=== PATIENT | female | born 1950 | race Caucasian/White ===

== ENCOUNTER 2018-01-16 08:57 | Day surgery (SDC) | payer MEDICARE, BC ==
[~2018-01-16] VITALS: Ht 149.9 cm; Wt 48.1 kg
[~2018-01-16 08:57] MED LIST: ASPIRIN ADULT L81 M2 PO; CALCIUM 1200 PO; CYANOCOBAL1000 MCG/M IM; DICLOFENAC SODIUM1 % TOP; HYDROXYCHLOR200 MG PO; MONTELUKAST SOD10 MG PO; POT CHLORIDE10 ME5 PO; TRAMADOL HYDROC50 MG PO; ZOMETA4 MG/5 ML IV; [UNRECOGNIZED DRUG - OTHER] PO
[2018-01-16 11:27] VITALS: BP 85/50
== END 2018-01-16 11:33 | disposition home or self-care (01) ==
LOC: ENDO 08:57 → ORM 11:45 → ENDO 12:15
PROVIDERS: ATTEND Internal Medicine Gastroenterology
PROC: 0DBE8ZX Excision of Large Intestine, Via Natural or Artificial Opening Endoscopic, Diagnostic (ICD-10-PCS; principal; 2018-01-16)
PROC: 0DB98ZX Excision of Duodenum, Via Natural or Artificial Opening Endoscopic, Diagnostic (ICD-10-PCS; 2018-01-16)
PROC: 0DB78ZX Excision of Stomach, Pylorus, Via Natural or Artificial Opening Endoscopic, Diagnostic (ICD-10-PCS; 2018-01-16)
PROC: 0DB48ZX Excision of Esophagogastric Junction, Via Natural or Artificial Opening Endoscopic, Diagnostic (ICD-10-PCS; 2018-01-16)
DX: R19.7 Diarrhea, unspecified (principal); D50.9 Iron deficiency anemia, unspecified; K29.70 Gastritis, unspecified, without bleeding; K44.9 Diaphragmatic hernia without obstruction or gangrene; K57.30 Diverticulosis of large intestine without perforation or abscess without bleeding; K64.4 Residual hemorrhoidal skin tags; K64.8 Other hemorrhoids; K21.0 Gastro-esophageal reflux disease with esophagitis; K22.2 Esophageal obstruction; K25.9 Gastric ulcer, unspecified as acute or chronic, without hemorrhage or perforation; E78.00 Pure hypercholesterolemia, unspecified; Z86.010 Personal history of colon polyps